=== PATIENT | female | born 1960 | race African-American/Black ===

== ENCOUNTER 2017-09-15 12:54 | Emergency (ER) | payer MEDICAID ==
[~2017-09-15] VITALS: Ht 165.1 cm; Wt 126.0 kg
[~2017-09-15 12:54] MED LIST: ATEN50TA PO; ATOR20TA65 PO; CLOP75TA33 PO; GLIP5TAB12 PO; METF500T4 PO; MOME13HF IH
[2017-09-15] MEDS ORDERED: ALBUTEROL (0.083%) 2.5MG/3ML NEB HHN STA (15:06)
[2017-09-15] MEDS ORDERED: FLUTICASONE PROPIONATE 50MCG/SPRAY BOTTLE BOTHNSTRLS STA (15:07)
[2017-09-15] MEDS ORDERED: KETOROLAC 30MG/ML VIAL IV ONE (15:15)
[2017-09-15] MEDS ORDERED: BENZONATATE 100MG CAPSULE PO ONE (15:15)
[2017-09-15 16:57] VITALS: BP 117/56
== END 2017-09-15 17:00 | disposition home or self-care (01) ==
LOC: ER 13:17
DX: B34.9 Viral infection, unspecified (principal); I10 Essential (primary) hypertension; E11.9 Type 2 diabetes mellitus without complications; J45.909 Unspecified asthma, uncomplicated; I25.2 Old myocardial infarction; Z88.5 Allergy status to narcotic agent; Z88.0 Allergy status to penicillin; Z79.01 Long term (current) use of anticoagulants
CPT/HCPCS: 71045; 93005; 94640; 96374; 99284; J1885; J7611; Z7610

== ENCOUNTER 2018-01-24 11:23 | Emergency (ER) | payer MEDICAID ==
[~2018-01-24] VITALS: Ht 162.6 cm; Wt 121.0 kg
[2018-01-24] MEDS ORDERED: IBUPROFEN 600MG TABLET PO ONE (14:30)
[2018-01-24 15:56] VITALS: BP 145/87
== END 2018-01-24 15:57 | disposition home or self-care (01) ==
LOC: ER 14:03
DX: M25.551 Pain in right hip (principal); M79.652 Pain in left thigh; M79.651 Pain in right thigh; E11.9 Type 2 diabetes mellitus without complications; E66.9 Obesity, unspecified; E78.00 Pure hypercholesterolemia, unspecified; I10 Essential (primary) hypertension; I25.2 Old myocardial infarction; Z79.84 Long term (current) use of oral hypoglycemic drugs; Z88.5 Allergy status to narcotic agent; Z88.0 Allergy status to penicillin
CPT/HCPCS: 73502; 93970; 99284

== ENCOUNTER 2018-05-29 07:29 | Emergency (ER) | payer MEDICAID ==
[~2018-05-29] VITALS: Ht 165.1 cm; Wt 119.0 kg
[~2018-05-29 07:29] MED LIST changes: -ATEN50TA PO; +INSLIS SUBCUT; +LANTUSUD SUBCUT; -METF500T4 PO; +METF500T6 PO
[2018-05-29 09:36] VITALS: BP 131/75
== END 2018-05-29 09:42 | disposition home or self-care (01) ==
LOC: ER 07:29
DX: L30.4 Erythema intertrigo (principal); J45.909 Unspecified asthma, uncomplicated; E11.9 Type 2 diabetes mellitus without complications; I10 Essential (primary) hypertension; I25.2 Old myocardial infarction; Z88.0 Allergy status to penicillin; Z88.5 Allergy status to narcotic agent; Z79.4 Long term (current) use of insulin; Z79.899 Other long term (current) drug therapy
CPT/HCPCS: 99283

== ENCOUNTER 2018-08-13 10:56 | Emergency (ER) | payer MEDICAID ==
[~2018-08-13] VITALS: Ht 162.6 cm; Wt 122.5 kg
[~2018-08-13 10:56] MED LIST changes: +METF-414 PO; -METF500T6 PO
[2018-08-13 11:15] VITALS: BP 137/86
[2018-08-13] MEDS ORDERED: HYDR-4009 MT (11:23)
== END 2018-08-13 12:11 | disposition home or self-care (01) ==
LOC: ER 12:04
DX: J06.9 Acute upper respiratory infection, unspecified (principal); H60.92 Unspecified otitis externa, left ear; I10 Essential (primary) hypertension
CPT/HCPCS: 99283

== ENCOUNTER 2018-12-16 09:42 | Emergency (ER) | payer MEDICAID ==
[~2018-12-16] VITALS: Ht 162.6 cm; Wt 130.6 kg
[~2018-12-16 09:42] MED LIST changes: -CLOP75TA33 PO; +HYDR-4009 MT
[2018-12-16] MEDS ORDERED: IPRATROPIUM BROMIDE (0.02%) 0.5MG/2.5ML NEB HHN STA (10:21)
[2018-12-16] MEDS ORDERED: ALBUTEROL (0.083%) 2.5MG/3ML NEB HHN STA (10:21)
[2018-12-16] MEDS ORDERED: SODIUM CHLORIDE 0.9% 1,000 ML IV ONE (10:25)
[2018-12-16 10:42] LABS: EOSINOPHILS % 3.1 % (0.0-5.0); HEMATOCRIT. 39.1 % (36.0-48.0); HEMOGLOBIN. 12.9 g/dL (12.0-16.0); MEAN CORPUSCULAR HEMOGLOBIN 26.9 pg (28.0-32.0); MEAN CORPUSCULAR VOLUME 81.5 fL (81.0-99.0); MEAN PLATELET VOLUME 8.5 fl (7.4-10.4); MONOCYTES % 10.5 % (2.0-8.0); NEUTROPHILS % 56.4 % (40.0-76.0); PLATELET 286 x1000/uL (130-400); RED BLOOD CELL COUNT 4.79 mill/uL (4.2-5.4); RED CELL DISTRIBUTION WIDTH 14.5 % (11.6-14.6)
[2018-12-16 10:47] LABS: CHLORIDE 99 mEq/L (98-107)
[2018-12-16 12:22] VITALS: BP 125/74
== END 2018-12-16 12:27 | disposition home or self-care (01) ==
LOC: ER 09:48
DX: J45.901 Unspecified asthma with (acute) exacerbation (principal); I11.9 Hypertensive heart disease without heart failure; E11.65 Type 2 diabetes mellitus with hyperglycemia; I25.2 Old myocardial infarction; E66.9 Obesity, unspecified; Z88.0 Allergy status to penicillin; Z88.5 Allergy status to narcotic agent; Z79.899 Other long term (current) drug therapy; Z79.4 Long term (current) use of insulin; Z68.42 Body mass index [BMI] 45.0-49.9, adult
CPT/HCPCS: 36415; 71045; 80048; 83880; 84484; 85025; 93005; 94644; 99285; J7030; J7611

== ENCOUNTER 2019-02-14 08:50 | Emergency (ER) | payer MEDICAID ==
[~2019-02-14] VITALS: Ht 162.6 cm; Wt 213.0 kg
[2019-02-14] MEDS ORDERED: ACETAMINOPHEN 325MG TABLET PO STA (11:13)
[2019-02-14 11:34] LABS: BASOPHILS % 1.3 % (0.0-2.0); EOSINOPHILS % 1.2 % (0.0-5.0); HEMATOCRIT. 40.6 % (36.0-48.0); HEMOGLOBIN. 13.2 g/dL (12.0-16.0); LYMPHOCYTES % 22.1 % (20.0-50.0); MEAN CORPUSCULAR HEMOGLOBIN 26.6 pg (28.0-32.0); MEAN CORPUSCULAR VOLUME 81.9 fL (81.0-99.0); MEAN PLATELET VOLUME 8.3 fl (7.4-10.4); MONOCYTES % 8.9 % (2.0-8.0); NEUTROPHILS % 66.5 % (40.0-76.0); PLATELET 311 x1000/uL (130-400); RED BLOOD CELL COUNT 4.96 mill/uL (4.2-5.4); RED CELL DISTRIBUTION WIDTH 14.8 % (11.6-14.6)
[2019-02-14 11:41] LABS: CHLORIDE 102 mEq/L (98-107)
[2019-02-14 11:42] LABS: CLARITY URINE CLOUDY (CLEAR); COLOR URINE DARK YELLOW (YELLOW); INR 1.1; KETONES URINE TRACE (NEGATIVE); LEUKOCYTE ESTERASE URINE NEGATIVE (NEGATIVE); NITRITE URINE NEGATIVE (NEGATIVE); OCCULT BLOOD URINE NEGATIVE (NEGATIVE); PROTEIN URINE NEGATIVE (NEGATIVE); PROTHROMBIN TIME 10.9 sec (9.6-11.0); SPECIFIC GRAVITY URINE 1.022 (1.005-1.030)
[2019-02-14] MEDS ORDERED: IOHEXOL-300 100 ML BOTTLE ONE (14:42)
[2019-02-14 15:18] VITALS: BP 133/72
== END 2019-02-14 15:47 | disposition home or self-care (01) ==
LOC: ER 08:50
DX: R19.04 Left lower quadrant abdominal swelling, mass and lump (principal); E11.9 Type 2 diabetes mellitus without complications; I10 Essential (primary) hypertension; I25.2 Old myocardial infarction; Z88.0 Allergy status to penicillin; Z88.5 Allergy status to narcotic agent; Z86.73 Personal history of transient ischemic attack (TIA), and cerebral infarction without residual deficits; Z79.4 Long term (current) use of insulin
CPT/HCPCS: 36415; 74176; 74177; 80053; 81003; 83690; 85025; 85610; 99284; Q9967; Z7610

== ENCOUNTER 2019-04-02 03:16 | Emergency (ER) | payer MEDICAID ==
[~2019-04-02] VITALS: Ht 170.2 cm; Wt 113.0 kg
[2019-04-02 06:10] LABS: CLARITY URINE CLOUDY (CLEAR); COLOR URINE DARK YELLOW (YELLOW); KETONES URINE 1+ (NEGATIVE); LEUKOCYTE ESTERASE URINE TRACE (NEGATIVE); NITRITE URINE NEGATIVE (NEGATIVE); OCCULT BLOOD URINE NEGATIVE (NEGATIVE); PROTEIN URINE NEGATIVE (NEGATIVE); SPECIFIC GRAVITY URINE 1.031 (1.005-1.030)
[2019-04-02 06:21] LABS: BASOPHILS % 0.4 % (0.0-2.0); EOSINOPHILS % 0.6 % (0.0-5.0); HEMOGLOBIN. 12.7 g/dL (12.0-16.0); LYMPHOCYTES % 12.6 % (20.0-50.0); MEAN CORPUSCULAR HEMOGLOBIN 26.2 pg (28.0-32.0); MEAN CORPUSCULAR VOLUME 80.3 fL (81.0-99.0); MEAN PLATELET VOLUME 8.1 fl (7.4-10.4); MONOCYTES % 10.1 % (2.0-8.0); NEUTROPHILS % 76.3 % (40.0-76.0); PLATELET 374 x1000/uL (130-400); RED BLOOD CELL COUNT 4.85 mill/uL (4.2-5.4); RED CELL DISTRIBUTION WIDTH 15.1 % (11.6-14.6)
[2019-04-02 06:23] LABS: CHLORIDE 101 mEq/L (98-107)
[2019-04-02] MEDS ORDERED: SODIUM CHLORIDE 0.9% 1,000 ML IV ONE (07:15)
[2019-04-02] MEDS ORDERED: ONDANSETRON HCL 4MG/2ML INJ IV ONE (07:15)
[2019-04-02] MEDS ORDERED: MORPHINE SULFATE 4 MG/ML CPJ (NOT FOR IM USE) IV ONE (07:15)
[2019-04-02 11:30] VITALS: BP 144/90
== END 2019-04-02 11:30 | disposition home or self-care (01) ==
LOC: ER 03:16
DX: R19.09 Other intra-abdominal and pelvic swelling, mass and lump (principal); N39.0 Urinary tract infection, site not specified; R11.2 Nausea with vomiting, unspecified; N93.9 Abnormal uterine and vaginal bleeding, unspecified; E11.9 Type 2 diabetes mellitus without complications; I10 Essential (primary) hypertension; I25.2 Old myocardial infarction; Z79.4 Long term (current) use of insulin; Z79.899 Other long term (current) drug therapy; Z88.0 Allergy status to penicillin; Z88.5 Allergy status to narcotic agent
CPT/HCPCS: 36415; 71045; 76830; 76856; 80053; 81003; 83690; 85025; 87210; 93005; 96361; 96374; 96375; 99284; J2270; J2405; J7030; Z7610

== ENCOUNTER 2019-04-29 07:12 | Inpatient (IN) | payer MEDICAID ==
[~2019-04-29] VITALS: Ht 162.6 cm; Wt 119.7 kg
[~2019-04-29 07:12] MED LIST changes: +DIPH25CA83 MT; -GLIP5TAB12 PO; -HYDR-4009 MT; -INSLIS SUBCUT; -LANTUSUD SUBCUT; -METF-414 PO; +METO-293 MT; +MSCON15 PO; +ONDA4TAB11 PO; +POLY17PO3 MT
[2019-04-29] MEDS ORDERED: IPRATROPIUM/ALBUTEROL 0.5-3(2.5)MG/3ML NEB HHN ONE (09:00)
[2019-04-29] MEDS ORDERED: ONDANSETRON HCL 4MG/2ML INJ IV ONE (09:15)
[2019-04-29] MEDS ORDERED: MORPHINE SULFATE 4 MG/ML CPJ (NOT FOR IM USE) IV SCH (09:15)
[2019-04-29 09:47] LABS: HEMATOCRIT. 37.4 % (36.0-48.0); MEAN CORPUSCULAR HEMOGLOBIN 25.5 pg (28.0-32.0); MEAN CORPUSCULAR VOLUME 79.3 fL (81.0-99.0); MEAN PLATELET VOLUME 7.5 fl (7.4-10.4); PLATELET 472 x1000/uL (130-400); RED BLOOD CELL COUNT 4.71 mill/uL (4.2-5.4)
[2019-04-29 09:50] LABS: CHLORIDE 100 mEq/L (98-107)
[2019-04-29 10:04] LABS: D-DIMER 8.6 mg/L FEU (<0.50); INR 1.4; PARTIAL THROMBOPLASTIN TIME 30.3 sec (23.4-31.0); PROTHROMBIN TIME 14.2 sec (9.6-11.0)
[2019-04-29] MEDS ORDERED: LEVOFLOXACIN 500MG PREMIX 100 ML IV ONE (10:15)
[2019-04-29 10:18] LABS: PLATELET ESTIMATE INCREASED
[2019-04-29] MEDS ORDERED: IOHEXOL-350 100 ML BOTTLE ONE (10:37)
[2019-04-29] MEDS ORDERED: AZITHROMYCIN 500 MG in DEXT 5% WATER 250 ML IV SCH (11:30)
[2019-04-29 12:00] VITALS: BP 123/78
[2019-04-29 12:30] VITALS: BP 123/78
[2019-04-29] MEDS ORDERED: IPRATROPIUM/ALBUTEROL 0.5-3(2.5)MG/3ML NEB HHN PRN (13:00)
[2019-04-29] MEDS ORDERED: ONDANSETRON HCL 4MG/2ML INJ IV PRN (13:30)
[2019-04-29] MEDS ORDERED: ACETAMINOPHEN 325MG TABLET PO PRN (13:30)
[2019-04-29] MEDS ORDERED: HYDROCODONE/ACETAMINOPHEN 5/325MG TABLET PO PRN (13:30)
[2019-04-29] MEDS ORDERED: DEXTROSE 50% WATER 50ML SYRINGE IV PRN (14:00)
[2019-04-29] MEDS: FUROSEMIDE 40MG/4ML VIAL IVP SCH (14:11)
[2019-04-29 16:00] VITALS: BP 120/80
[2019-04-29] MEDS ORDERED: PNEUMOCOCCAL 23-VAL P-SAC VAC 0.5 ML IM ONE (16:30)
[2019-04-29] MEDS: IPRATROPIUM/ALBUTEROL 0.5-3(2.5)MG/3ML NEB HHN SCH ×2 (16:49→22:00)
[2019-04-29] MEDS: BLOOD SUGAR DIAGNOSTIC STRIP TEST SCH ×2 (17:10→20:30)
[2019-04-29] MEDS: METFORMIN HCL 500MG TABLET PO SCH (18:54)
[2019-04-29] MEDS: METOCLOPRAMIDE HCL 10MG/2ML VIAL IV SCH (18:55)
[2019-04-29] MEDS: INSULIN LISPRO 100 UNITS/ML SUBCUT SCH ×2 (19:02→21:00)
[2019-04-29 20:00] VITALS: BP 121/65
[2019-04-29] MEDS: MORPHINE SULFATE 15MG TABLET SR PO SCH (21:00)
[2019-04-30] VITALS: BP 126/78
[2019-04-30] MEDS: IPRATROPIUM/ALBUTEROL 0.5-3(2.5)MG/3ML NEB HHN SCH ×6 (01:17→20:55)
[2019-04-30] MEDS: METOCLOPRAMIDE HCL 10MG/2ML VIAL IV SCH ×4 (01:30→17:38)
[2019-04-30 04:00] VITALS: BP 141/78
[2019-04-30] MEDS: BLOOD SUGAR DIAGNOSTIC STRIP TEST SCH ×4 (05:36→21:48)
[2019-04-30] MEDS: INSULIN LISPRO 100 UNITS/ML SUBCUT SCH ×4 (06:36→21:00)
[2019-04-30 08:00] VITALS: BP 141/60
[2019-04-30 08:01] LABS: INR 1.4; PROTHROMBIN TIME 14.6 sec (9.6-11.0)
[2019-04-30 08:17] LABS: HEMATOCRIT. 31.8 % (36.0-48.0); HEMOGLOBIN. 10.6 g/dL (12.0-16.0); MEAN CORPUSCULAR VOLUME 77.6 fL (81.0-99.0); MEAN PLATELET VOLUME 7.3 fl (7.4-10.4); PLATELET 461 x1000/uL (130-400); RED BLOOD CELL COUNT 4.09 mill/uL (4.2-5.4); RED CELL DISTRIBUTION WIDTH 16.1 % (11.6-14.6)
[2019-04-30] MEDS: MORPHINE SULFATE 15MG TABLET SR PO SCH ×3 (09:00→21:03)
[2019-04-30] MEDS: FUROSEMIDE 40MG/4ML VIAL IVP SCH (10:21)
[2019-04-30] MEDS: METFORMIN HCL 500MG TABLET PO SCH ×2 (10:21→17:38)
[2019-04-30 12:00] VITALS: BP 117/74
[2019-04-30 13:17] LABS: PLATELET ESTIMATE INCREASED
[2019-04-30] MEDS: LEVOFLOXACIN 500MG PREMIX 100 ML IV SCH (15:06)
[2019-04-30 16:00] VITALS: BP 111/68
[2019-04-30 20:00] VITALS: BP 106/53
[2019-05-01] VITALS: BP 127/75
[2019-05-01] MEDS: METOCLOPRAMIDE HCL 10MG/2ML VIAL IV SCH ×5 (00:13→16:37)
[2019-05-01] MEDS: IPRATROPIUM/ALBUTEROL 0.5-3(2.5)MG/3ML NEB HHN SCH ×6 (00:45→20:41)
[2019-05-01 04:00] VITALS: BP 105/54
[2019-05-01] MEDS: INSULIN LISPRO 100 UNITS/ML SUBCUT SCH ×2 (06:25→12:40)
[2019-05-01] MEDS: BLOOD SUGAR DIAGNOSTIC STRIP TEST SCH ×2 (06:25→12:10)
[2019-05-01 08:00] VITALS: BP 101/60
[2019-05-01] MEDS: FUROSEMIDE 40MG/4ML VIAL IVP SCH (08:53)
[2019-05-01] MEDS: METFORMIN HCL 500MG TABLET PO SCH ×2 (08:53→16:37)
[2019-05-01] MEDS: MORPHINE SULFATE 15MG TABLET SR PO SCH ×2 (08:53→22:41)
[2019-05-01 12:00] VITALS: BP 123/84
[2019-05-01] MEDS: LEVOFLOXACIN 500MG PREMIX 100 ML IV SCH (13:17)
[2019-05-01 16:00] VITALS: BP 124/81
[2019-05-01 19:44] LABS: CLARITY URINE CLOUDY (CLEAR); COLOR URINE DARK YELLOW (YELLOW); KETONES URINE TRACE (NEGATIVE); LEUKOCYTE ESTERASE URINE TRACE (NEGATIVE); NITRITE URINE NEGATIVE (NEGATIVE); OCCULT BLOOD URINE 1+ (NEGATIVE); PROTEIN URINE TRACE (NEGATIVE); SPECIFIC GRAVITY URINE 1.021 (1.005-1.030)
[2019-05-01 20:00] VITALS: BP 108/80
[2019-05-02] VITALS: BP 94/52
[2019-05-02] MEDS: IPRATROPIUM/ALBUTEROL 0.5-3(2.5)MG/3ML NEB HHN SCH ×4 (00:29→11:03)
[2019-05-02] MEDS: METOCLOPRAMIDE HCL 10MG/2ML VIAL IV SCH ×3 (00:34→11:47)
[2019-05-02 04:00] VITALS: BP 128/73
[2019-05-02 05:42] LABS: BASOPHILS % 0.3 % (0.0-2.0); HEMATOCRIT. 32.8 % (36.0-48.0); HEMOGLOBIN. 10.6 g/dL (12.0-16.0); LYMPHOCYTES % 7.9 % (20.0-50.0); MEAN CORPUSCULAR HEMOGLOBIN 25.4 pg (28.0-32.0); MEAN CORPUSCULAR VOLUME 78.2 fL (81.0-99.0); MEAN PLATELET VOLUME 7.3 fl (7.4-10.4); MONOCYTES % 14.1 % (2.0-8.0); NEUTROPHILS % 76.7 % (40.0-76.0); PLATELET 444 x1000/uL (130-400); RED CELL DISTRIBUTION WIDTH 16.4 % (11.6-14.6)
[2019-05-02 08:00] VITALS: BP 112/68
[2019-05-02] MEDS: METFORMIN HCL 500MG TABLET PO SCH ×2 (08:24→08:29)
[2019-05-02] MEDS: MORPHINE SULFATE 15MG TABLET SR PO SCH (08:25)
[2019-05-02] MEDS: LEVOFLOXACIN 500MG PREMIX 100 ML IV SCH (11:47)
[2019-05-02 13:39] VITALS: BP 121/78
[2019-05-02] MEDS ORDERED: IPRATROPIUM BROMIDE (0.02%) 0.5MG/2.5ML NEB HHN SCH (16:00)
== END 2019-05-02 14:35 | disposition hospice, home (50) | DRG 139 ==
LOC: ER 07:42 → 8WST 10:05 → EDBEDREQ 10:09 → EDBEDREQTM 10:09 → ENRESERV 11:58
PROVIDERS: ADMIT Internal Medicine; ATTEND Internal Medicine
PROC: 0W9B3ZZ Drainage of Left Pleural Cavity, Percutaneous Approach (ICD-10-PCS; principal; 2019-04-30)
DX: J18.9 Pneumonia, unspecified organism (principal); J96.00 Acute respiratory failure, unspecified whether with hypoxia or hypercapnia; E43 Unspecified severe protein-calorie malnutrition; C78.6 Secondary malignant neoplasm of retroperitoneum and peritoneum; C78.7 Secondary malignant neoplasm of liver and intrahepatic bile duct; I11.0 Hypertensive heart disease with heart failure; J91.8 Pleural effusion in other conditions classified elsewhere; I50.9 Heart failure, unspecified; C56.9 Malignant neoplasm of unspecified ovary; Z68.42 Body mass index [BMI] 45.0-49.9, adult; J45.909 Unspecified asthma, uncomplicated; I25.10 Atherosclerotic heart disease of native coronary artery without angina pectoris; N63.0 Unspecified lump in unspecified breast; I27.20 Pulmonary hypertension, unspecified; J98.11 Atelectasis; C79.00 Secondary malignant neoplasm of unspecified kidney and renal pelvis; R19.00 Intra-abdominal and pelvic swelling, mass and lump, unspecified site; E11.9 Type 2 diabetes mellitus without complications; E66.9 Obesity, unspecified; Z79.4 Long term (current) use of insulin; I25.2 Old myocardial infarction; Z85.028 Personal history of other malignant neoplasm of stomach; Z88.0 Allergy status to penicillin; Z88.5 Allergy status to narcotic agent; Z79.899 Other long term (current) drug therapy; Z79.1 Long term (current) use of non-steroidal anti-inflammatories (NSAID)
CPT/HCPCS: 32555; 36415; 71045; 71275; 80048; 81003; 82040; 82962; 83605; 83615; 83880; 84484; 85379; 88108; 88312; 90732; 93005; 93306; 94640; 96374; 99285; J0456; J1815; J1940; J1956; J2270; J2405; J2765; J7060; J7620; Q9967